=== PATIENT | male | born 1945 | race Hispanic/Latino ===

== ENCOUNTER 2017-05-14 06:57 | Inpatient (IN) | payer MEDICARE ==
[2017-05-13 09:28] LABS: BASOPHILS % (AUTO) 0.5 % (0.0-5.0); EOSINOPHILS % (AUTO) 19.6 % (0.0-8.0); HEMATOCRIT 36.4 % (42-54); LYMPHOCYTES % (AUTO) 17.1 % (21.0-51.0); MEAN CORPUSCULAR HEMOGLOBIN 30.2 pg (27.0-33.0); MEAN CORPUSCULAR HGB CONC 33.8 g/dL (32.0-36.0); MEAN CORPUSCULAR VOLUME 89.3 fL (79-99); MONOCYTES % (AUTO) 7.5 % (3.0-13.0); NEUTROPHILS % (AUTO) 55.3 % (40.0-77.0); PLATELET COUNT (AUTO) 276 K/uL (130-400); RED BLOOD CELL COUNT(AUTO) 4.08 MIL/uL (4.50-6.20); RED CELL DISTRIBUTION WIDTH 14.5 % (11.0-15.5); WHITE BLOOD COUNT (AUTO) 11.5 K/uL (4.8-10.8)
[2017-05-13 09:31] VITALS: BP 144/59
[2017-05-13 09:37] LABS: CREATININE 1.4 mg/dL (0.5-1.5); POTASSIUM 5.8 mmol/L (3.5-5.1)
[2017-05-13 09:40] LABS: INR 1.01 (0.85-1.15); PROTHROMBIN TIME 10.6 SEC (9.6-11.6)
[2017-05-13 09:51] LABS: APPEARANCE,URINE CLEAR (CLEAR); BILIRUBIN,URINE NEGATIVE (NEGATIVE); COLOR,URINE YELLOW (YELLOW); GLUCOSE, URINE (UA) NEGATIVE (NEGATIVE); KETONES,URINE NEGATIVE (NEGATIVE); LEUKOCYTE ESTERASE ,URINE NEGATIVE (NEGATIVE); NITRATE,URINE NEGATIVE (NEGATIVE); OCCULT BLOOD,URINE NEGATIVE (NEGATIVE); PROTEIN,URINE NEGATIVE (NEGATIVE); UROBILINOGEN,URINE 0.2 mg/dL (0.2-1.0)
[2017-05-14] VITALS (34 sets, daily range): BP systolic 90–240; BP diastolic 42–99
[~2017-05-14] VITALS: Ht 171.4 cm; Wt 79.5 kg
[~2017-05-14 06:57] MED LIST: ASPI-1197 PO; ATOR40TA71 PO; CYCL30DR OU; INSU100I21 SQ; LISI40TA4 PO; METF500T6 PO
[2017-05-14 07:36] LABS: CREATININE 1.3 mg/dL (0.5-1.5); POTASSIUM 4.5 mmol/L (3.5-5.1)
[2017-05-14] MEDS ORDERED: NITR0.4T50 SL (07:57)
[2017-05-14] MEDS ORDERED: MIDAZOLAM HCL 1 MG/ML 2ML VIAL IVP SCH (08:49)
[2017-05-14] MEDS ORDERED: MIDAZOLAM HCL 1 MG/ML 2ML VIAL ONE ×2 (08:50→09:34)
[2017-05-14] MEDS ORDERED: IOPAMIDOL-370 100 ML VIAL IV ONE (09:01)
[2017-05-14] MEDS ORDERED: ISOVUE-370 50ML VIAL IV ONE (09:01)
[2017-05-14] MEDS ORDERED: LIDOCAINE HCL 2% 20ML ONE (09:01)
[2017-05-14] MEDS ORDERED: NITROGLYCERIN 5 MG/ML 10 ML VIAL IV ONE (09:01)
[2017-05-14] MEDS ORDERED: MEPERIDINE-PF 25 MG/ML SYG ONE (09:34)
[2017-05-14] MEDS ORDERED: SODIUM CHLORIDE 0.9% 1000ML 1,000 ML IV SCH ×2 (09:56→16:45)
[2017-05-14] MEDS ORDERED: CEFUROXIME 1.5GM+NS 100ML 100 ML IV SCH (10:00)
[2017-05-14] MEDS ORDERED: ACETAMINOPHEN-CODEINE 300/30MG TAB PO PRN (10:00)
[2017-05-14] MEDS ORDERED: GLUCAGON 1MG KIT 1 MG ML IM PRN ×2 (10:00→16:45)
[2017-05-14] MEDS ORDERED: DEXTROSE 50%-WATER 50 ML DISP.SYRIN IV PRN ×2 (10:00→16:45)
[2017-05-14] MEDS ORDERED: NITROGLYCERIN 0.4 MG SL TAB SL SCH (10:00)
[2017-05-14] MEDS: CEFUROXIME SODIUM 1.5 GM VIAL IVP SCH ×2 (10:15→15:20)
[2017-05-14] MEDS ORDERED: INSULIN HUMULIN R 100 UNIT/ML 3ML SQ SCH (11:30)
[2017-05-14 11:47] LABS: HEMOGLOBIN A1C 8.2 % (4.0-6.0)
[2017-05-14 11:59] LABS: ALBUMIN 3.4 g/dL (3.5-5.0); BILIRUBIN,TOTAL 0.4 mg/dL (0.2-1.0)
[2017-05-14 12:01] LABS: CHOLESTEROL 96 mg/dL (<200); HDL CHOLESTEROL 43 mg/dL (29-71); LDL DIRECT 49 mg/dL (0-99); TRIGLYCERIDES 55 mg/dL (30-200)
[2017-05-14] MEDS ORDERED: EPINEPHRINE 1 MG/ML 30ML VIAL IJ ONE (13:18)
[2017-05-14] MEDS ORDERED: NITROGLYCERIN 50 MG/D5% WATER 1 BOT ONE (13:19)
[2017-05-14] MEDS ORDERED: THROMBIN-JMI 5000 UNIT/VIAL TP ONE (14:59)
[2017-05-14] MEDS ORDERED: AMIODARONE HCL 900MG/18ML IV ONE (15:06)
[2017-05-14] MEDS ORDERED: MILRINONE-D5W 20 MG/100 ML 0 ML IV ONE (15:06)
[2017-05-14] MEDS ORDERED: HEPARIN SODIUM 1000UNIT/ML 10ML VIAL ONE ×2 (15:06→17:30)
[2017-05-14] MEDS ORDERED: NOREPINEPHRINE BITARTRATE 1 MG/1 ML ML IV ONE (15:06)
[2017-05-14] MEDS ORDERED: ROCURONIUM BROMIDE 10MG/1ML 5ML VL ONE (15:06)
[2017-05-14] MEDS ORDERED: GLYCOPYRROLATE 0.2 MG/ML 5 ML VIAL ONE (15:06)
[2017-05-14] MEDS ORDERED: EPINEPHRINE 1 MG/ML AMPULE ONE (15:06)
[2017-05-14] MEDS ORDERED: ESMOLOL HCL 10 MG/ML 10 ML VIAL ONE (15:06)
[2017-05-14] MEDS ORDERED: AMINOCAPROIC ACID 250 MG/ML 20 ML VIAL IV ONE (15:06)
[2017-05-14] MEDS ORDERED: PROTAMINE SULFATE 10 MG/ML 25ML VIAL IV ONE (15:06)
[2017-05-14] MEDS ORDERED: LIDOCAINE PF 2% 5ML ABBOJECT ONE (15:06)
[2017-05-14] MEDS ORDERED: PROPOFOL 10 MG/ML 20ML VIAL IV ONE (15:07)
[2017-05-14] MEDS ORDERED: MIDAZOLAM HCL 1 MG/ML 5ML VIAL ONE (15:07)
[2017-05-14] MEDS ORDERED: FENTANYL CITRATE PF 50 MCG/1 ML 2ML VIAL ONE ×3 (15:24)
[2017-05-14] MEDS ORDERED: PAPAVERINE HCL 30 MG/ML 2ML VIAL ONE (15:26)
[2017-05-14] MEDS ORDERED: BACITRACIN 50,000 UNIT VIAL ONE (15:26)
[2017-05-14] MEDS ORDERED: OCTYL 2-CYANOACRYLATE 1 EACH TP ONE (15:26)
[2017-05-14 15:30] LABS: ABG BASE EXCESS -4.7 mmol/L (-2.0-3.0); ABG HCO3 19.3 mmol/L (21.0-28.0); ABG OXYGEN SATURATION 99.2 % (95.0-99.0); ABG PCO2 32 mmHg (35-48)
[2017-05-14 16:12] LABS: ABG BASE EXCESS -1.3 mmol/L (-2.0-3.0); ABG HCO3 22.6 mmol/L (21.0-28.0); ABG OXYGEN SATURATION 99.1 % (95.0-99.0); ABG PCO2 35 mmHg (35-48)
[2017-05-14] MEDS ORDERED: SODIUM CHLORIDE 0.9% 10 ML VIAL IVP PRN (16:45)
[2017-05-14] MEDS ORDERED: SODIUM CHLORIDE 0.9% 500ML 500 ML IV SCH (16:45)
[2017-05-14] MEDS ORDERED: NICARDIPINE HCL 100 MG in SODIUM CHLORIDE 0.9% 100 ML IV PRN (16:45)
[2017-05-14] MEDS ORDERED: EPINEPHRINE 2 MG in SODIUM CHLORIDE 0.9% 250 ML IV PRN (16:45)
[2017-05-14] MEDS ORDERED: SODIUM CHLORIDE 0.9% 250 ML IV PRN (16:45)
[2017-05-14] MEDS ORDERED: ACETAMINOPHEN 325 MG TAB PO PRN (16:45)
[2017-05-14] MEDS ORDERED: NITROGLYCERIN 50 MG/D5% WATER 250 BOT IV SCH (16:45)
[2017-05-14] MEDS ORDERED: POTASSIUM PHOS 15 mMOL+NS250ML 250 ML IV PRN (16:45)
[2017-05-14] MEDS ORDERED: INSULIN REGULAR, HUMAN 3ML 100 UNIT in SODIUM CHLORIDE 0.9% 99 ML IV SCH ×2 (16:45)
[2017-05-14] MEDS ORDERED: ALBUMIN (HUMAN) 5% 250 ML IV PRN (16:45)
[2017-05-14] MEDS ORDERED: SODIUM BICARB 8.4% 50ML SYRINGE IV PRN (16:45)
[2017-05-14] MEDS ORDERED: MORPHINE SULFATE 4 MG/1ML SYG IV PRN (16:45)
[2017-05-14] MEDS ORDERED: ONDANSETRON HCL MDV 20ML 2 MG/ML VIAL IV PRN (16:45)
[2017-05-14] MEDS ORDERED: CALCIUM GLUCONATE 1 GM in SODIUM CHLORIDE 0.9% 50 ML IV PRN (16:45)
[2017-05-14] MEDS ORDERED: NOREPINEPHRINE 4MG/NS 250ML 250 ML IV PRN (16:45)
[2017-05-14] MEDS ORDERED: AMINOCAPROIC ACID 15,000 MG in SODIUM CHLORIDE 0.9% 250 ML IV SCH (16:45)
[2017-05-14] MEDS ORDERED: PROPOFOL 1000 MG/100 ML 100 ML IV PRN (16:45)
[2017-05-14] MEDS ORDERED: MORPHINE SULFATE 2 MG/ML 1ML SYG IV PRN (16:45)
[2017-05-14] MEDS ORDERED: ACETAMINOPHEN 650 MG SUPPOSITORY RC PRN (16:45)
[2017-05-14] MEDS ORDERED: SODIUM BICARB 8.4% 50ML SYRINGE ONE (16:47)
[2017-05-14 17:10] LABS: ABG BASE EXCESS -0.8 mmol/L (-2.0-3.0); ABG HCO3 22.7 mmol/L (21.0-28.0); ABG OXYGEN SATURATION 98.7 % (95.0-99.0); ABG PCO2 33 mmHg (35-48)
[2017-05-14 17:57] LABS: ABG BASE EXCESS 0.4 mmol/L (-2.0-3.0); ABG HCO3 24.8 mmol/L (21.0-28.0); ABG OXYGEN SATURATION 97.8 % (95.0-99.0); ABG PCO2 39 mmHg (35-48)
[2017-05-14] MEDS: POTASSIUM CHLORIDE 20MEQ/100ML 100 ML IV PRN ×3 (18:01→23:06)
[2017-05-14 18:05] LABS: HEMATOCRIT 30.8 % (42-54); MEAN CORPUSCULAR HEMOGLOBIN 29.6 pg (27.0-33.0); MEAN CORPUSCULAR HGB CONC 33.6 g/dL (32.0-36.0); MEAN CORPUSCULAR VOLUME 88.1 fL (79-99); PLATELET COUNT (AUTO) 251 K/uL (130-400); RED CELL DISTRIBUTION WIDTH 14.5 % (11.0-15.5); WHITE BLOOD COUNT (AUTO) 22.9 K/uL (4.8-10.8)
[2017-05-14 18:15] LABS: CREATININE 1.1 mg/dL (0.5-1.5); MAGNESIUM 1.3 mg/dL (1.80-2.40); POTASSIUM 3.5 mmol/L (3.5-5.1)
[2017-05-14] MEDS ORDERED: ATORVASTATIN CALCIUM 40 MG TABLET PO SCH (21:00)
[2017-05-14] MEDS ORDERED: LISINOPRIL 40 MG TABLET PO SCH (21:00)
[2017-05-14 22:57] LABS: ABG BASE EXCESS 1.8 mmol/L (-2.0-3.0); ABG HCO3 25.8 mmol/L (21.0-28.0); ABG OXYGEN SATURATION 97.6 % (95.0-99.0); ABG PCO2 38 mmHg (35-48)
[2017-05-14 23:01] LABS: ABG BASE EXCESS 1.1 mmol/L (-2.0-3.0); ABG HCO3 24.7 mmol/L (21.0-28.0); ABG OXYGEN SATURATION 97.8 % (95.0-99.0); ABG PCO2 35 mmHg (35-48)
[2017-05-14] MEDS: MAGNESIUM 2GM PREMIX 50ML 50 ML IV PRN (23:35)
[2017-05-15] VITALS (33 sets, daily range): BP systolic 86–144; BP diastolic 33–72
[2017-05-15 00:12] LABS: ABG BASE EXCESS -0.3 mmol/L (-2.0-3.0); ABG HCO3 23.5 mmol/L (21.0-28.0); ABG PCO2 36 mmHg (35-48)
[2017-05-15] MEDS: HYDROCODONE/ACETAMINOPHEN 5/325 MG TAB PO PRN ×4 (00:28→19:36)
[2017-05-15] MEDS ORDERED: CEFUROXIME 1.5GM+NS 100ML 100 ML IV SCH (00:45)
[2017-05-15] MEDS: CEFUROXIME SODIUM 1.5 GM VIAL IVP SCH ×2 (00:47→13:34)
[2017-05-15 02:58] LABS: MAGNESIUM 2.4 mg/dL (1.80-2.40); POTASSIUM 3.9 mmol/L (3.5-5.1)
[2017-05-15 04:47] LABS: HEMATOCRIT 29.1 % (42-54); MEAN CORPUSCULAR HEMOGLOBIN 30.7 pg (27.0-33.0); MEAN CORPUSCULAR HGB CONC 34.7 g/dL (32.0-36.0); MEAN CORPUSCULAR VOLUME 88.3 fL (79-99); PLATELET COUNT (AUTO) 221 K/uL (130-400); RED CELL DISTRIBUTION WIDTH 14.4 % (11.0-15.5); WHITE BLOOD COUNT (AUTO) 14.6 K/uL (4.8-10.8)
[2017-05-15 05:05] LABS: CREATININE 1.3 mg/dL (0.5-1.5); MAGNESIUM 2.3 mg/dL (1.80-2.40); PHOSPHORUS 4.2 mg/dL (2.5-4.9)
[2017-05-15] MEDS ORDERED: ASPIRIN 81MG TAB.CHEW PO SCH (09:00)
[2017-05-15] MEDS ORDERED: MORPHINE SULFATE 2 MG/ML 1ML SYG IVP SCH ×2 (09:15→09:30)
[2017-05-15] MEDS ORDERED: METOPROLOL TARTRATE 25 MG TAB ONE (10:16)
[2017-05-15] MEDS: PANTOPRAZOLE SODIUM 40 MG TABLET.DR PO SCH (10:18)
[2017-05-15] MEDS: LISINOPRIL 2.5 MG TABLET PO SCH ×2 (10:18→21:00)
[2017-05-15] MEDS: ASPIRIN 81MG TAB.CHEW PO SCH (10:18)
[2017-05-15] MEDS ORDERED: ALBUMIN (HUMAN) 5% 250 ML IV SCH (18:30)
[2017-05-15] MEDS ORDERED: ALBUMIN (HUMAN) 5% 250 ML IV ONE (19:05)
[2017-05-15] MEDS: METOPROLOL TARTRATE 25 MG TAB PO SCH (21:00)
[2017-05-15] MEDS: ATORVASTATIN CALCIUM 40 MG TABLET PO SCH (21:38)
[2017-05-16] VITALS (30 sets, daily range): BP systolic 94–170; BP diastolic 37–96
[2017-05-16] MEDS: CEFUROXIME SODIUM 1.5 GM VIAL IVP SCH (00:34)
[2017-05-16] MEDS: HYDROCODONE/ACETAMINOPHEN 5/325 MG TAB PO PRN ×4 (00:36→21:33)
[2017-05-16] MEDS ORDERED: AMIODARONE HCL 900MG/18ML IV ONE (05:36)
[2017-05-16] MEDS ORDERED: DEXTROSE 5%-WATER 500 ML IV ONE (05:38)
[2017-05-16] MEDS ORDERED: SODIUM CHLORIDE 0.9% 100 ML IV ONE (05:39)
[2017-05-16] MEDS ORDERED: AMIODARONE HCL 900 MG in DEXTROSE 5%-WATER 500 ML IV SCH (05:45)
[2017-05-16] MEDS ORDERED: AMIODARONE HCL 150 MG in DEXTROSE 5%-WATER 100 ML IV SCH (05:45)
[2017-05-16 05:48] LABS: HEMATOCRIT 27.7 % (42-54); MEAN CORPUSCULAR HGB CONC 34.8 g/dL (32.0-36.0); MEAN CORPUSCULAR VOLUME 89.2 fL (79-99); PLATELET COUNT (AUTO) 170 K/uL (130-400); WHITE BLOOD COUNT (AUTO) 15.3 K/uL (4.8-10.8)
[2017-05-16 05:58] LABS: CREATININE 1.8 mg/dL (0.5-1.5); MAGNESIUM 2.1 mg/dL (1.80-2.40); PHOSPHORUS 4.5 mg/dL (2.5-4.9); POTASSIUM 4.4 mmol/L (3.5-5.1)
[2017-05-16] MEDS ORDERED: FUROSEMIDE 20 MG TABLET ONE (07:21)
[2017-05-16] MEDS: FUROSEMIDE 20 MG TABLET PO SCH ×2 (07:24→20:28)
[2017-05-16] MEDS: METOPROLOL TARTRATE 25 MG TAB PO SCH ×2 (09:00→20:29)
[2017-05-16] MEDS: LISINOPRIL 2.5 MG TABLET PO SCH ×2 (09:00→20:29)
[2017-05-16] MEDS: ASPIRIN 81MG TAB.CHEW PO SCH (09:29)
[2017-05-16] MEDS: PANTOPRAZOLE SODIUM 40 MG TABLET.DR PO SCH (09:29)
[2017-05-16] MEDS ORDERED: DOPAMINE 800MG/D5 250ML 250 ML IV SCH (12:45)
[2017-05-16] MEDS ORDERED: FUROSEMIDE 100 MG in SODIUM CHLORIDE 0.9% 90 ML IV SCH (12:45)
[2017-05-16] MEDS: INSULIN HUMULIN R 100 UNIT/ML 3ML SQ SCH ×3 (13:08→20:29)
[2017-05-16] MEDS: FUROSEMIDE 10 MG/ML 4ML VIAL IV SCH (13:44)
[2017-05-16] MEDS ORDERED: ONDANSETRON HCL MDV 20ML 2 MG/ML VIAL IVP ONE (16:05)
[2017-05-16] MEDS ORDERED: METOPROLOL TARTRATE 1 MG/ML 5ML VIAL IV ONE ×2 (16:37→16:55)
[2017-05-16] MEDS ORDERED: PRED5DRO17 OD (17:33)
[2017-05-16] MEDS ORDERED: BIMA12.5OS OS (17:33)
[2017-05-16 18:50] LABS: CREATININE 2.1 mg/dL (0.5-1.5); MAGNESIUM 1.9 mg/dL (1.80-2.40); PHOSPHORUS 4.4 mg/dL (2.5-4.9); POTASSIUM 4.3 mmol/L (3.5-5.1)
[2017-05-16] MEDS: MAGNESIUM 2GM PREMIX 50ML 50 ML IV PRN (20:27)
[2017-05-16] MEDS: ATORVASTATIN CALCIUM 40 MG TABLET PO SCH (20:28)
[2017-05-16] MEDS: PREDNISOLONE ACETATE 1% 5ML DROPS.SUSP OD SCH (20:42)
[2017-05-16] MEDS: LATANOPROST 2.5 ML DROPS OS SCH (20:43)
[2017-05-17] VITALS (16 sets, daily range): BP systolic 95–145; BP diastolic 35–77
[2017-05-17] MEDS: HYDROCODONE/ACETAMINOPHEN 5/325 MG TAB PO PRN (02:52)
[2017-05-17] MEDS: METOPROLOL TARTRATE 1 MG/ML 5ML VIAL IV PRN ×3 (03:32→23:51)
[2017-05-17 03:54] LABS: CREATININE 1.9 mg/dL (0.5-1.5); POTASSIUM 3.9 mmol/L (3.5-5.1)
[2017-05-17] MEDS: POTASSIUM CHLORIDE 20MEQ/100ML 100 ML IV PRN (04:14)
[2017-05-17] MEDS: INSULIN HUMULIN R 100 UNIT/ML 3ML SQ SCH ×4 (07:14→20:43)
[2017-05-17] MEDS: ASPIRIN 81MG TAB.CHEW PO SCH (08:18)
[2017-05-17] MEDS: PANTOPRAZOLE SODIUM 40 MG TABLET.DR PO SCH (08:18)
[2017-05-17] MEDS: LISINOPRIL 2.5 MG TABLET PO SCH ×2 (08:18→20:14)
[2017-05-17] MEDS: METOPROLOL TARTRATE 25 MG TAB PO SCH ×2 (08:19→20:13)
[2017-05-17] MEDS: FUROSEMIDE 20 MG TABLET PO SCH (08:19)
[2017-05-17] MEDS: FUROSEMIDE 10 MG/ML 4ML VIAL IV SCH (12:45)
[2017-05-17] MEDS: ATORVASTATIN CALCIUM 40 MG TABLET PO SCH (20:13)
[2017-05-17] MEDS: LATANOPROST 2.5 ML DROPS OS SCH (20:14)
[2017-05-17] MEDS: PREDNISOLONE ACETATE 1% 5ML DROPS.SUSP OD SCH (20:15)
[2017-05-18] VITALS (20 sets, daily range): BP systolic 107–138; BP diastolic 49–86
[2017-05-18] MEDS: HYDROCODONE/ACETAMINOPHEN 5/325 MG TAB PO PRN ×3 (03:20→21:18)
[2017-05-18 04:26] LABS: CREATININE 1.5 mg/dL (0.5-1.5); MAGNESIUM 2.4 mg/dL (1.80-2.40); PHOSPHORUS 2.8 mg/dL (2.5-4.9); POTASSIUM 3.7 mmol/L (3.5-5.1)
[2017-05-18] MEDS: POTASSIUM CHLORIDE 20MEQ/100ML 100 ML IV PRN (04:46)
[2017-05-18] MEDS: INSULIN HUMULIN R 100 UNIT/ML 3ML SQ SCH ×4 (06:15→21:15)
[2017-05-18] MEDS: ASPIRIN 81MG TAB.CHEW PO SCH (08:48)
[2017-05-18] MEDS: METOPROLOL TARTRATE 25 MG TAB PO SCH ×2 (08:48→21:04)
[2017-05-18] MEDS: LISINOPRIL 2.5 MG TABLET PO SCH ×2 (08:48→21:04)
[2017-05-18] MEDS: FUROSEMIDE 20 MG TABLET PO SCH (08:49)
[2017-05-18] MEDS: PANTOPRAZOLE SODIUM 40 MG TABLET.DR PO SCH (08:49)
[2017-05-18] MEDS: AMIODARONE HCL 200 MG TABLET PO SCH ×2 (11:00→21:04)
[2017-05-18] MEDS ORDERED: ENOXAPARIN SODIUM 30 MG/0.3 ML SQ SCH (13:00)
[2017-05-18] MEDS: ATORVASTATIN CALCIUM 40 MG TABLET PO SCH (21:04)
[2017-05-18] MEDS: PREDNISOLONE ACETATE 1% 5ML DROPS.SUSP OD SCH (21:04)
[2017-05-18] MEDS: LATANOPROST 2.5 ML DROPS OS SCH (21:04)
[2017-05-19 04:11] VITALS: BP 149/73
[2017-05-19 05:50] LABS: CREATININE 1.3 mg/dL (0.5-1.5); POTASSIUM 3.8 mmol/L (3.5-5.1)
[2017-05-19] MEDS: INSULIN HUMULIN R 100 UNIT/ML 3ML SQ SCH ×3 (05:57→17:07)
[2017-05-19 07:42] VITALS: BP 124/60
[2017-05-19] MEDS ORDERED: RIVAROXABAN 20 MG TABLET PO SCH (09:00)
[2017-05-19] MEDS: ASPIRIN 81MG TAB.CHEW PO SCH (09:31)
[2017-05-19] MEDS: PANTOPRAZOLE SODIUM 40 MG TABLET.DR PO SCH (09:31)
[2017-05-19] MEDS: AMIODARONE HCL 200 MG TABLET PO SCH (09:31)
[2017-05-19] MEDS: FUROSEMIDE 20 MG TABLET PO SCH (09:31)
[2017-05-19] MEDS: LISINOPRIL 2.5 MG TABLET PO SCH (09:31)
[2017-05-19] MEDS: METOPROLOL TARTRATE 25 MG TAB PO SCH (09:31)
[2017-05-19 11:53] VITALS: BP 122/54
[2017-05-19 16:10] VITALS: BP 114/58
== END 2017-05-19 19:30 | DRG 233 ==
LOC: DAH 06:57 → 2BH 06:58 → DAH 06:58 → 2CV 15:39 → 2CH 05-15 06:29 → 2DH 05-18 18:17
PROVIDERS: ADMIT Internal Medicine Cardiovascular Disease; ATTEND Internal Medicine Cardiovascular Disease
PROC: 06BQ4ZZ Excision of Left Saphenous Vein, Percutaneous Endoscopic Approach (ICD-10-PCS; 2017-05-14)
PROC: B2151ZZ Fluoroscopy of Left Heart using Low Osmolar Contrast (ICD-10-PCS; 2017-05-14)
PROC: B2111ZZ Fluoroscopy of Multiple Coronary Arteries using Low Osmolar Contrast (ICD-10-PCS; 2017-05-14)
PROC: B3121ZZ Fluoroscopy of Left Subclavian Artery using Low Osmolar Contrast (ICD-10-PCS; 2017-05-14)
PROC: 02100Z9 Bypass Coronary Artery, One Artery from Left Internal Mammary, Open Approach (ICD-10-PCS; principal; 2017-05-14 13:30)
PROC: 4A023N7 Measurement of Cardiac Sampling and Pressure, Left Heart, Percutaneous Approach (ICD-10-PCS; 2017-05-14 13:30)
PROC: 021109W Bypass Coronary Artery, Two Arteries from Aorta with Autologous Venous Tissue, Open Approach (ICD-10-PCS; 2017-05-14 13:30)
PROC: 30233N1 Transfusion of Nonautologous Red Blood Cells into Peripheral Vein, Percutaneous Approach (ICD-10-PCS; 2017-05-16)
DX: I25.110 Atherosclerotic heart disease of native coronary artery with unstable angina pectoris (principal); N17.0 Acute kidney failure with tubular necrosis; E11.22 Type 2 diabetes mellitus with diabetic chronic kidney disease; E11.65 Type 2 diabetes mellitus with hyperglycemia; I48.0 Paroxysmal atrial fibrillation; I13.0 Hypertensive heart and chronic kidney disease with heart failure and stage 1 through stage 4 chronic kidney disease, or unspecified chronic kidney disease; I95.9 Hypotension, unspecified; I50.32 Chronic diastolic (congestive) heart failure; I48.1 Persistent atrial fibrillation; R65.10 Systemic inflammatory response syndrome (SIRS) of non-infectious origin without acute organ dysfunction; N18.3 Chronic kidney disease, stage 3 (moderate); E78.5 Hyperlipidemia, unspecified; D64.9 Anemia, unspecified; H40.9 Unspecified glaucoma; I49.5 Sick sinus syndrome; R91.8 Other nonspecific abnormal finding of lung field; Z87.891 Personal history of nicotine dependence; Z83.3 Family history of diabetes mellitus; Z79.899 Other long term (current) drug therapy
CPT/HCPCS: 36415; 36600; 71045; 80048; 80061; 81003; 82040; 82247; 82330; 82435; 82803; 82947; 82948; 83036; 83605; 83735; 84075; 84100; 84132; 84155; 84295; 84450; 84460; 85018; 85025; 85027; 85347; 85610; 85730; 86850; 86900; 86901; 86922; 93005; 93458; 93880; 94002; 94010; 94150; 97039; 99152; 99153; A4218; A7048; C1894; J0171; J0282; J0610; J0697; J1265; J1644; J1815; J1940; J2001; J2175; J2250; J2260; J2440; J2704; J2720; J3010; J3475; J3480; J3490; J7030; J7040; J7060; J7510; P9016; P9045; Q9967